=== PATIENT | female | born 1990 | race African-American/Black ===

== ENCOUNTER 2018-05-16 10:51 | Day surgery (SDC) | payer MEDICAID ==
[~2018-05-16] VITALS: Ht 167.6 cm; Wt 61.0 kg
[2018-05-16 11:19] VITALS: BP 117/63
[2018-05-16] MEDS ORDERED: CEFAZOLIN 1000MG PREMIX 50 ML IV ONE (11:30)
[2018-05-16] MEDS ORDERED: BALANCED SALT IRRIG SOLN COMB1 500ML OP ONE (13:00)
[2018-05-16] MEDS ORDERED: MIDAZOLAM HCL 2 MG/2 ML VIAL ONE (13:11)
[2018-05-16] MEDS ORDERED: PROPOFOL 200MG/20ML VIAL IV ONE (13:11)
[2018-05-16] MEDS ORDERED: FENTANYL CITRATE/PF 50MCG/ML 2ML VIAL ONE (13:11)
[2018-05-16] MEDS ORDERED: SUCCINYLCHOLINE CHLORIDE 200MG/10ML VIAL IV ONE (13:41)
[2018-05-16] MEDS ORDERED: CEFAZOLIN SODIUM 1000MG/VIAL ONE (13:41)
[2018-05-16] MEDS ORDERED: HYALURONATE SODIUM 14 MG/ML 0.85ML SYRINGE IO ONE ×2 (13:44→14:06)
[2018-05-16] MEDS ORDERED: ONDANSETRON HCL 4MG/2ML VIAL IV PRN (14:00)
[2018-05-16] MEDS ORDERED: MORPHINE SULFATE 2 MG/ML CPJ (NOT FOR IM USE) IV PRN (14:00)
[2018-05-16] MEDS ORDERED: HYDROMORPHONE HCL/PF 2MG/ML CPJ IV PRN (14:00)
[2018-05-16] MEDS ORDERED: MEPERIDINE HCL/PF 25MG/ML CPJ IV PRN (14:00)
[2018-05-16] MEDS ORDERED: FENTANYL CITRATE/PF 50MCG/ML 2ML VIAL IV PRN (14:00)
[2018-05-16] MEDS ORDERED: MORPHINE SULFATE 4 MG/ML CPJ (NOT FOR IM USE) IV PRN (14:06)
== END 2018-05-16 15:00 | disposition home or self-care (01) ==
LOC: ER 10:51 → OR 12:00 → ER 13:55 → OR 15:00
PROVIDERS: ATTEND Ophthalmology
DX: H27.122 Anterior dislocation of lens, left eye (principal); Z98.42 Cataract extraction status, left eye; Z79.899 Other long term (current) drug therapy
CPT/HCPCS: 66825; 81025; 96365; 99285; J0330; J0690; J2250; J3010; J3490; 99284; J2704

== ENCOUNTER 2020-04-25 09:28 | Emergency (ER) | payer MEDICAID ==
[~2020-04-25] VITALS: Ht 165.1 cm; Wt 68.0 kg
[2020-04-25] MEDS ORDERED: IBUPROFEN 600MG TABLET PO STA (10:36)
[2020-04-25 10:46] VITALS: BP 117/84
== END 2020-04-25 11:01 | disposition home or self-care (01) ==
LOC: ER 09:39
DX: S00.81XA Abrasion of other part of head, initial encounter (principal); V49.40XA Driver injured in collision with unspecified motor vehicles in traffic accident, initial encounter; Y93.89 Activity, other specified; Y92.89 Other specified places as the place of occurrence of the external cause; Y99.8 Other external cause status
CPT/HCPCS: 99283